=== PATIENT | male | born 1970 | race Caucasian/White ===

== ENCOUNTER → 2017-12-25 | Outpatient (REF) | payer BC, OTHER ==
[~2017-12-25] MED LIST: ESOM20CA32 PO; HYDR-34 PO; PNT40TEC PO; SCR1T1 PO; SULF1TAB35 PO
--- NOTE | 2017-12-25 13:29 | Diagnostic Imaging Report ---
EXAMINATION: Magnetic resonance imaging of the right knee without intravenous contrast DATE: December 25, 2017. COMPARISON: None. INDICATION: 47-year-old male, right knee injury. Right knee pain. TECHNIQUE: Multiplanar, multisequence non contrast enhanced MR imaging was accomplished. FINDINGS: There are motion limitations of the exam. MENISCI: There is an area of oblique signal within the posterior horn of the medial meniscus extending towards the inferior surface seen best on coronal proton density sequence image 10 and sagittal proton density fat saturation sequence image 20 which likely relates to a small oblique tear. Additional signal within the body and posterior horn of the medial meniscus does not meet strict MRI criteria for tear. There is no medial meniscal extrusion. There is no parameniscal cyst. There is an oblique tear involving the body and posterior horn of the lateral meniscus. LIGAMENTS AND TENDONS: There is a complete tear of the anterior cruciate ligament without visualized anterior cruciate ligament fibers. This may be a chronic tear of the anterior cruciate ligament. The posterior cruciate ligament is intact. The medial collateral ligament is intact. The iliotibial band, mid third lateral capsular ligament, fibular collateral ligament, biceps femoris tendon and conjoined tendon are intact. The quadriceps tendon and patella ligament are intact. JOINT: There is a full-thickness cartilage flap involving the lateral patellar facet measuring 8 mm in transverse dimension with mild underlying degenerative related marrow edema. There is irregularity and thinning of the cartilage of the median patellar ridge. There is low-level degenerative related marrow edema underlying the medial patellar facet. There is a full-thickness cartilage defect involving the lateral tibial plateau on coronal STIR sequence image 7. There is a cartilage flap involving the subjacent lateral femoral condyle measuring approximately 7 x 7 mm in size. The medial compartment cartilage is grossly intact. There is no large knee joint effusion, prominent synovitis, or identified intra-articular body. BONE: There is a displaced fracture of the proximal fibula perhaps best illustrated on axial T2 fat saturation sequence image 20 with adjacent marrow edema and adjacent soft tissue edema. There is no gross offset of the articulating surface of the proximal fibula at the proximal tibiofibular articulation. There is an essentially nondisplaced fracture involving the posterior aspect of the lateral tibial plateau seen best on sagittal proton density fat saturation sequence image 5 with adjacent marrow edema. There is no identified offset of the articulating surface. There is edema-like signal in the lateral femoral condyle which potentially may reflect bone contusion and/or degenerative-related marrow edema. BURSAE AND SOFT TISSUES: There is no Zuniga's cyst. IMPRESSION: 1. Essentially nondisplaced fracture of the posterior aspect of the lateral tibial plateau. No identified offset of the articulating surface. 2. Displaced proximal fibular fracture without identified offset of the articulating surface of the fibula at the proximal tibiofibular articulation. 3. Edema like signal in the lateral femoral condyle which may relate to bone contusion and/or degenerative-related marrow edema. 4. Oblique tear involving the body and posterior horn of the lateral meniscus. 5. Small oblique tear involving the posterior horn of the medial meniscus. 6. Complete tear of the anterior cruciate ligament which is likely chronic. 7. Patellofemoral and lateral compartment cartilage defects. No large knee joint effusion, identified intra-articular body, or prominent synovitis. Report was called/FAXED to [facility] by teri at 1:29 PM. Dictated by: Dictated on workstation # [id number]
== END | disposition home or self-care (01) ==
LOC: RAD 10:49
PROVIDERS: ATTEND Nurse Practitioner Family
CPT/HCPCS: 73721

== ENCOUNTER 2018-10-05 09:23 | Emergency (ER) | payer OTHER ==
[~2018-10-05] VITALS: Ht 172.7 cm; Wt 88.9 kg
[2018-10-05] MEDS ORDERED: LORA0.5T PO (10:51)
--- NOTE | 2018-10-05 10:52 | ED General ---
General Chief Complaint: General Problems/Pain Stated Complaint: DIFFICULTY SLEEPING PAST 3 DAYS Nursing Triage Note: PT CO OF DIFFICULTY SLEEPING FOR PAST 3 DAYS Nursing Sepsis Screen: No Definite Risk Source of Information: Patient Exam Limitations: No Limitations History of Present Illness Date Seen by Provider: Oct 05, 2018 Time Seen by Provider: 10:48 Initial Comments To ER per private vehicle from home with reports of difficulty sleeping for the past 3 days. He tried an [id number] sleep aid without success. He states that he awakens with cramping in his abdomen and palpitations and feeling very anxious. He has had similar episode before and was given a short course of Xanax which resolved his symptoms. Primary care's Dr. Tabor. Timing/Duration: 2-3 Days Severity: Moderate Allergies and Home Medications Allergies Coded Allergies: No Known Drug Allergies (Unverified , 02/14/10) Home Medications Esomeprazole Magnesium 20 Mg Capsule.dr, 20 MG PO DAILY, (Reported) Sulfamethoxazole/Trimethoprim 1 Each Tablet, 1 EACH PO BID Prescribed by: MADONNA CASE on 07/20/15 0359 Patient Home Medication List Home Medication List Reviewed: Yes Review of Systems Review of Systems Constitutional: see HPI EENTM: see HPI Respiratory: no symptoms reported Cardiovascular: no symptoms reported Genitourinary: no symptoms reported Musculoskeletal: no symptoms reported Skin: no symptoms reported Psychiatric/Neurological: No Symptoms Reported Hematologic/Lymphatic: No Symptoms Reported Immunological/Allergic: no symptoms reported Past Cdabsyn-Gydtbp-Ntxlxp Hx Patient Social History Recent Foreign Travel: No Contact w/Someone Who Travel: No Recent Infectious Disease Expo: No Past Medical History Gastroesophageal Reflux Physical Exam Vital Signs Vital Signs - First Documented 10/05/18 10:05 Temp 97.0 Pulse 94 Resp 18 B/P (MAP) 154/82 (106) Pulse Ox 98 Capillary Refill : Less Than 3 Seconds Height, Weight, BMI Height: 5'8.00" Weight: 196lbs. oz. [id number]; BMI Method:Stated General Appearance: No Apparent Distress, WD/WN Eyes: Bilateral Eye Normal Inspection, Bilateral Eye PERRL, Bilateral Eye EOMI HEENT: PERRL/EOMI, TMs Normal, Normal ENT Inspection Neck: Full Range of Motion, Normal Inspection Respiratory: No Accessory Muscle Use, No Respiratory Distress Cardiovascular: Regular Rate, Rhythm, Normal Peripheral Pulses Gastrointestinal: Normal Bowel Sounds, No Organomegaly, Non Tender Extremity: Normal Capillary Refill, Normal Inspection Neurologic/Psychiatric: Alert, Oriented x3, No Motor/Sensory Deficits Skin: Normal Color, Warm/Dry Procedures/Interventions Suture Size: 4-0 Progress/Results/Core Measures Suspected Sepsis Recent Fever Within 48 Hours: No Infection Criteria Present: Suspected New Infection New/Unexplained Altered Menta: No Sepsis Screen: No Definite Risk SIRS Temperature:97.0 Pulse: 94 Respiratory Rate: 18 Blood Pressure 154 /82 Mean: 106 Results/Orders Vital Signs/I&O 10/05/18 10:05 Temp 97.0 Pulse 94 Resp 18 B/P (MAP) 154/82 (106) Pulse Ox 98 Capillary Refill : Less Than 3 Seconds Blood Pressure Mean: 106 Departure Impression Primary Impression: Insomnia Qualified Codes: G47.00 - Insomnia, unspecified Additional Impression: Anxiety Disposition: 01 HOME, SELF-CARE Condition: Stable Departure-Patient Inst. Decision time for Depature: 10:50 Referrals: OTF TABOR MD (PCP/Family) Primary Care Physician Patient Instructions: Insomnia Add. Discharge Instructions: 1. Take one of the lorazepam at bedtime. You may also take one during the daytime if you feel particularly anxious or half of the tablet during the daytime if you feel anxious. However, this may make you sleepy so do not drive after taking these. Call Dr. Tabor on Saturday to make an appointment to be seen as he may wish to start you on a medication that will better control your anxiety. All discharge instructions reviewed with patient and/or family. Voiced understanding. Scripts Lorazepam (Lorazepam) 0.5 Mg Tablet 0.5 MG PO BID PRN for ANXIETY, #10 TAB Prov: LANE JIN APRN 10/05/18 Copy Copies To 1: OTF TABOR MD, PETER J APRN Oct 05, 2018 10:52
[2018-10-05 11:04] VITALS: BP 154/82
== END 2018-10-05 11:04 | disposition home or self-care (01) ==
LOC: EDUNIT# 09:23 → ER 09:24
DX: G47.00 Insomnia, unspecified (principal); F41.9 Anxiety disorder, unspecified; K21.9 Gastro-esophageal reflux disease without esophagitis
CPT/HCPCS: 99281

== ENCOUNTER 2019-10-16 00:55 | Emergency (ER) | payer OTHER ==
[~2019-10-16] VITALS: Ht 172 cm; Wt 85.6 kg
[~2019-10-16 00:55] MED LIST changes: +LORA0.5T PO
[2019-10-16] MEDS ORDERED: predniSONE 20 MG TAB PO ONE (01:30)
[2019-10-16] MEDS ORDERED: diphenhydrAMINE 25 MG TAB (BENADRYL) PO ONE (01:30)
[2019-10-16] MEDS ORDERED: FAMOTIDINE 20 MG (PEPCID) TABLET PO ONE (01:30)
--- NOTE | 2019-10-16 02:10 | ED General ---
General Chief Complaint: Allergic Reaction Stated Complaint: RASH ON ARMS & LEGS Nursing Triage Note: AMBULATORY TO ED ROOM 5 WITH C/O HIVES TO BILATERAL ARMS SPOTS TO TOP OF BILATERAL THIGHS, AND PATCHES THROUGHOUT TRUNK. DENIES LIP, TONGUE, OR THROAT SWELLING. DENIES NEW MEDICINES OR NEW FOODS. 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 Nursing Sepsis Screen: No Definite Risk Source of Information: Patient Exam Limitations: No Limitations History of Present Illness Date Seen by Provider: Oct 16, 2019 Time Seen by Provider: 01:10 Initial Comments This 49-year-old gentleman presents to the emergency room with complaints of mildly pruritic hives primarily affecting his bilateral forearms and thighs. He has some more mild scattered areas. He just noticed the hives this evening. He denies any new exposures or foods other than eating some [employer] ice cream that he had not had before. He has been on his medications for quite some time and has not noticed any problems with them in the past. He has not taken any medications to treat the symptoms yet. Allergies and Home Medications Allergies Coded Allergies: No Known Drug Allergies (Unverified , 02/14/10) Home Medications Esomeprazole Magnesium 20 Mg Capsule.dr, 20 MG PO DAILY, (Reported) Lorazepam 0.5 Mg Tablet, 0.5 MG PO BID PRN for ANXIETY Prescribed by: LANE JIN on 10/05/18 1051 Prednisone 20 Mg Tab, 40 MG PO DAILY Prescribed by: MEKA CANCHOLA on 10/16/19 0214 Sulfamethoxazole/Trimethoprim 1 Each Tablet, 1 EACH PO BID Prescribed by: MADONNA CASE on 07/20/15 0359 Patient Home Medication List Home Medication List Reviewed: Yes Review of Systems Review of Systems Constitutional: no symptoms reported EENTM: no symptoms reported Respiratory: no symptoms reported Cardiovascular: no symptoms reported Gastrointestinal: no symptoms reported Genitourinary: no symptoms reported Musculoskeletal: no symptoms reported Skin: see HPI Psychiatric/Neurological: No Symptoms Reported Hematologic/Lymphatic: No Symptoms Reported Past Yziochc-Anxqld-Tccbwg Hx Past Med/Social Hx: Reviewed Nursing Past Med/Soc Hx Patient Social History Alcohol Use: Denies Use Recreational Drug Use: No Smoking Status: Never a Smoker Recent Foreign Travel: No Contact w/Someone Who Travel: No Recent Infectious Disease Expo: No Recent Hopitalizations: No Physical Abuse: No Sexual Abuse: No Mistreated: No Fear: No Past Medical History Surgeries: Yes (DENTAL) Respiratory: No Cardiac: No Neurological: No Sexually Transmitted Disease: No Genitourinary: No Gastrointestinal: Yes Gastroesophageal Reflux Musculoskeletal: No Endocrine: No HEENT: No Cancer: No Psychosocial: Yes Anxiety, Depression Integumentary: No Blood Disorders: No Physical Exam Vital Signs Vital Signs - First Documented 10/16/19 10/16/19 01:06 02:17 Temp 36.6 Pulse 80 Resp 18 B/P (MAP) 151/95 (113) Pulse Ox 98 O2 Delivery Room Air Capillary Refill : Less Than 3 Seconds Height, Weight, BMI Height: 5'8.00" Weight: 196lbs. oz. 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 Smaller scattered hives elsewhere) Procedures/Interventions Suture Size: 4-0 Progress/Results/Core Measures Suspected Sepsis Recent Fever Within 48 Hours: No Infection Criteria Present: None New/Unexplained Altered Menta: No Sepsis Screen: No Definite Risk SIRS Temperature: Pulse: 80 Respiratory Rate: 18 Blood Pressure 151 /95 Mean: 113 Results/Orders My Orders Orders - MEKA MAYO MD Famotidine Tablet (Pepcid Tablet) (10/16/19 01:30) Diphenhydramine Tablet (Benadryl Tablet) (10/16/19 01:30) Prednisone Tablet (Deltasone Tablet) (10/16/19 01:30) Medications Given in ED Current Medications Medications Dose Ordered Sig/Allison Route Start Time Stop Time Status Last Admin Dose Admin Diphenhydramine HCl 50 mg ONCE ONCE PO 10/16/19 01:30 10/16/19 01:31 DC 10/16/19 01:25 50 MG Famotidine 40 mg ONCE ONCE PO 10/16/19 01:30 10/16/19 01:31 DC 10/16/19 01:25 40 MG Prednisone 40 mg ONCE ONCE PO 10/16/19 01:30 10/16/19 01:31 DC 10/16/19 01:25 40 MG Vital Signs/I&O 10/16/19 10/16/19 01:06 02:17 Temp 36.6 36.6 Pulse 80 86 Resp 18 18 B/P (MAP) 151/95 (113) 148/95 (113) Pulse Ox 98 O2 Delivery Room Air Room Air Capillary Refill : Less Than 3 Seconds Blood Pressure Mean: 113 Progress Note : Progress Note Patient was treated with oral Benadryl, Pepcid, and prednisone with mild improvement. He developed no involvement of the lips, tongue, mouth, or airway. Departure Impression Primary Impression: Hives Disposition: HOME, SELF-CARE Condition: Improved Departure-Patient Inst. Decision time for Depature: 02:09 Referrals: OTF TABOR MD (PCP/Family) Primary Care Physician Patient Instructions: Hives Add. Discharge Instructions: Avoid any possible triggers that may have caused your hives. You may take Benadryl (diphenhydramine) up to 50 mg every 4 hours as needed for itching and hives. For the next few days take Pepcid (famotidine) 20 mg twice daily as well as your daily dose of prednisone to prevent rebound. Return to the emergency room or call 911 if you develop symptoms that involve your lips, tongue, throat, or breathing. Take Benadryl (diphenhydramine) 50 mg immediately if you have this type of reaction. All discharge instructions reviewed with patient and/or family. Voiced understanding. Scripts Prednisone (Prednisone) 20 Mg Tab 40 MG PO DAILY, #6 TAB 0 Refills Prov: MEKA MAYO MD 10/16/19 MEKA MAYO MD Oct 16, 2019 02:10
[2019-10-16] MEDS ORDERED: PRD20T PO (02:14)
[2019-10-16 02:17] VITALS: BP 148/95
== END 2019-10-16 02:19 | disposition home or self-care (01) ==
LOC: EDUNIT# 00:55 → ER 00:58
DX: L50.9 Urticaria, unspecified (principal); K21.9 Gastro-esophageal reflux disease without esophagitis; F41.9 Anxiety disorder, unspecified; F32.9 Major depressive disorder, single episode, unspecified
CPT/HCPCS: 99283